=== PATIENT | female | born 1975 | race Caucasian/White ===

== ENCOUNTER → 2016-09-08 | Outpatient (CLI) | payer BC, OTHER ==
[~2016-09-08] MED LIST: AMT/25 PO; ATV/1 PO; AUG0.05C12 TOP; BUSP-8 PO; CHOL100010 PO; CMD6 PO; DILT120C68 PO; EZET10TA63 PO; FAMO20TA9 PO; FERR325T51 PO; FLUT0.0529 NAE; FLUT1INH7 INH; GLC/500 PO; INSUINJ4 SC; IPRA1AER2 INH; IPRASOL4 INH; LEVAAER2 INH; LEVO125T72 PO; LEVO200T6 PO; LIRA18IN SC; LPT40 PO; MONT1TAB3 PO; MULT1CHW37 PO; NVLG SQ; PANT1TAB48 PO; PLMINS INH; PRD/1 PO; PRED-301 PO; RIVA1TAB4 PO; SERT-234 PO; SULF800T23 PO; WARF6TAB5 PO
[2016-09-08 11:39] LABS: ESTIMATED AVERAGE GLUCOSE 94 mg/dl; HA1C FLAG Normal (Normal)
[2016-09-08 13:05] LABS: CHOLESTEROL/HDL RATIO 6.9; THYROID STIMULATING HORMONE 80.1 uIu/ml (0.300-4.500)
== END | disposition home or self-care (01) ==
LOC: C.LAB1850 10:14
PROVIDERS: ATTEND Internal Medicine Endocrinology, Diabetes & Metabolism
DX: E78.5 Hyperlipidemia, unspecified (principal); E03.9 Hypothyroidism, unspecified

== ENCOUNTER → 2016-11-14 | Outpatient (CLI) | payer BC ==
[~2016-11-14] MED LIST changes: -AMT/25 PO; -CMD6 PO; -INSUINJ4 SC
== END | disposition home or self-care (01) ==
LOC: C.PAPS 16:19
PROVIDERS: ATTEND Obstetrics & Gynecology
DX: Z01.419 Encounter for gynecological examination (general) (routine) without abnormal findings (principal)

== ENCOUNTER → 2016-12-05 | Outpatient (CLI) | payer BC, OTHER ==
[2016-12-05 12:42] LABS: BASO % 0.3 %; BASO ABS # 0.02 K/uL (0-0.2); COMPLETE YES; EOS % 2.7 %; HEMATOCRIT 43.8 % (37-47); IG% 0.2 %; LYMPH ABS # 2.85 K/uL (1.2-3.4); MEAN CORPUSCULAR HEMOGLOBIN 31.3 pg (25-34); MEAN PLATELET VOLUME 11.2 fL (7.4-10.4); MONO % 7.7 %; NEUT % 44.1 %; PLATELET COUNT 253 K/uL (130-400); RED BLOOD COUNT 4.76 M/uL (4.2-5.4); WHITE BLOOD COUNT 6.34 K/uL (4.8-10.8)
[2016-12-05 12:58] LABS: PROLACTIN 5.15 ng/mL
[2016-12-05 13:42] LABS: RATIO 5.7 mcg/mg (0-30.0)
[2016-12-08 22:36] LABS: IGA SERUM 122 mg/dL (81-463); TIS TRANS IGA 1 U/mL (<4)
== END | disposition home or self-care (01) ==
LOC: C.LAB1850 09:26
PROVIDERS: ATTEND Obstetrics & Gynecology
DX: E03.9 Hypothyroidism, unspecified (principal); D64.9 Anemia, unspecified; E11.9 Type 2 diabetes mellitus without complications; N91.1 Secondary amenorrhea

== ENCOUNTER → 2017-01-20 | Outpatient (CLI) | payer BC, OTHER ==
[~2017-01-20] MED LIST changes: -LEVO200T6 PO; -PLMINS INH; -PRD/1 PO; -WARF6TAB5 PO
--- NOTE | 2017-01-20 12:35 | DIAGNOSTIC IMAGING REPORT ---
CHEST 2 VIEWS ROUTINE CLINICAL HISTORY: Z95.828 Port catheter in placet complaining of port tenderness COMPARISON STUDY: 05/08/2016 FINDINGS: Central catheter remains in the medial right subclavian vein at the juncture with the superior vena cava. No change in appearance compared to the prior study. Lungs are clear. Diaphragms smooth. IMPRESSION: No acute process. Electronically signed by: Ferny Espino M.D. 01/20/2017 12:34 PM Dictated Date/Time: 01/20/2017 12:32 PM
== END | disposition home or self-care (01) ==
LOC: C.RAD1850 12:07
PROVIDERS: ATTEND Physician Assistant
DX: Z95.828 Presence of other vascular implants and grafts (principal)

== ENCOUNTER → 2017-01-31 | Outpatient (CLI) | payer BC, OTHER | END | disposition home or self-care (01) | LOC: C.RC 09:05 | PROVIDERS: ATTEND Internal Medicine | DX: J45.909 Unspecified asthma, uncomplicated (principal) ==

== ENCOUNTER → 2017-05-02 | Outpatient (CLI) | payer BC, OTHER ==
[2017-05-02 10:01] LABS: ESTIMATED AVERAGE GLUCOSE 88 mg/dl; HA1C FLAG Normal (Normal)
[2017-05-02 10:22] LABS: CHOLESTEROL/HDL RATIO 9.2
== END | disposition home or self-care (01) ==
LOC: C.LAB1850 08:04
PROVIDERS: ATTEND Internal Medicine Endocrinology, Diabetes & Metabolism
DX: E03.9 Hypothyroidism, unspecified (principal); E11.9 Type 2 diabetes mellitus without complications

== ENCOUNTER → 2017-06-05 | Outpatient (CLI) | payer BC, OTHER ==
[2017-06-05 10:16] LABS: BLOOD UREA NITROGEN 13 mg/dl (7-18); CREATININE 0.61 mg/dl (0.60-1.20); GLUCOSE 89 mg/dl (70-99)
[2017-06-05 10:17] LABS: BUN/CREATININE RATIO 20.6 (10-20); CALCIUM 9.4 mg/dl (8.5-10.1); CARBON DIOXIDE 21 mmol/L (21-32); CHLORIDE 112 mmol/L (98-107); SODIUM 142 mmol/L (136-145)
[2017-06-05 10:27] LABS: THYROID STIMULATING HORMONE 0.099 uIu/ml (0.300-4.500)
== END | disposition home or self-care (01) ==
LOC: C.LAB1850 08:29
PROVIDERS: ATTEND Physician Assistant
DX: E03.9 Hypothyroidism, unspecified (principal)

== ENCOUNTER → 2017-07-31 | Outpatient (CLI) | payer BC, OTHER ==
[2017-07-31 12:47] LABS: THYROID STIMULATING HORMONE 0.088 uIu/ml (0.300-4.500)
== END | disposition home or self-care (01) ==
LOC: C.LAB1850 10:46
PROVIDERS: ATTEND Physician Assistant
DX: E03.9 Hypothyroidism, unspecified (principal)

== ENCOUNTER → 2017-08-04 | Outpatient (CLI) | payer BC, OTHER ==
[~2017-08-04] MED LIST changes: +PANT1TAB3 PO; -PANT1TAB48 PO
--- NOTE | 2017-08-07 07:49 | MAMMOGRAPHY REPORT ---
BILATERAL DIGITAL SCREENING MAMMOGRAM TOMOSYNTHESIS WITH CAD: 08/04/2017 TECHNIQUE: Breast tomosynthesis in addition to standard 2D mammography was performed. Current study was also evaluated with a Computer Aided Detection (CAD) system. COMPARISON: Comparison is made to exam dated: 01/21/2016 mammogram - [facility]. BREAST COMPOSITION: There are scattered areas of fibroglandular density in both breasts. FINDINGS: No suspicious masses, calcifications, or areas of architectural distortion are noted in ei ther breast. There has been no significant interval change compared to prior exams. Scattered bilater al benign-appearing calcifications are not significantly changed. A port catheter again overlies the right upper inner posterior breast. IMPRESSION: ACR BI-RADS CATEGORY 2: BENIGN There is no mammographic evidence of malignancy. A 1 year screening mammogram is recommended. The pa tient will receive written notification of the results. Approximately 10% of breast cancers are not detected with mammography. A negative mammographic report should not delay biopsy if a clinically suggestive mass is present. Odalis Blandon M.D. ah/:08/04/2017 14:37:25 Research Assistant Member: Sara SOLO)(Susan), [facility] letter sent: Normal 1/2 BI-RADS Code: ACR BI-RADS Category 2: Benign
== END | disposition home or self-care (01) ==
LOC: C.MAMM 13:37
PROVIDERS: ATTEND Obstetrics & Gynecology
DX: Z12.31 Encounter for screening mammogram for malignant neoplasm of breast (principal)

== ENCOUNTER → 2017-11-22 | Outpatient (CLI) | payer BC, OTHER ==
[2017-11-22 09:32] LABS: BASO % 0.3 %; BASO ABS # 0.02 K/uL (0-0.2); EOS % 2.9 %; EOS ABS # 0.17 K/uL (0-0.5); HEMATOCRIT 40.4 % (37-47); HEMOGLOBIN 14.1 g/dL (12.0-16.0); IG# 0.01 K/uL (0.00-0.02); LYMPH % 38.2 %; LYMPH ABS # 2.22 K/uL (1.2-3.4); MEAN CELL VOLUME 87.3 fL (80-100); MEAN CORPUSCULAR HEMOGLOBIN 30.5 pg (25-34); MEAN CORPUSCULAR HGB CONC 34.9 g/dl (32-36); MEAN PLATELET VOLUME 10.4 fL (7.4-10.4); MONO % 8.4 %; MONO ABS # 0.49 K/uL (0.11-0.59); PLATELET COUNT 213 K/uL (130-400); RED CELL DISTRIBUTION WIDTH CV 12.8 % (11.5-14.5); WHITE BLOOD COUNT 5.81 K/uL (4.8-10.8)
[2017-11-22 10:10] LABS: ALBUMIN 3.6 gm/dl (3.4-5.0); ALT/SGPT 25 U/L (12-78); AST/SGOT 16 U/L (15-37); BLOOD UREA NITROGEN 17 mg/dl (7-18); CALCIUM 9.5 mg/dl (8.5-10.1); CARBON DIOXIDE 25 mmol/L (21-32); CREATININE 0.73 mg/dl (0.60-1.20); GLUCOSE 80 mg/dl (70-99); POTASSIUM 4.2 mmol/L (3.5-5.1); SODIUM 139 mmol/L (136-145)
[2017-11-22 10:19] LABS: ALKALINE PHOSPHATASE 102 U/L (45-117); CHOLESTEROL 300 mg/dl (0-200); LDL CHOLESTEROL CALCULATED 194 mg/dl; TOTAL PROTEIN 7.5 gm/dl (6.4-8.2)
[2017-11-22 10:22] LABS: HEMOGLOBIN A1C 4.8 % (4.5-5.6)
== END | disposition home or self-care (01) ==
LOC: C.LAB1850 08:32
PROVIDERS: ATTEND Physician Assistant
DX: D50.9 Iron deficiency anemia, unspecified (principal); E11.9 Type 2 diabetes mellitus without complications

== ENCOUNTER → 2017-11-22 | Outpatient (CLI) | payer BC, OTHER | END | disposition home or self-care (01) | LOC: C.PAPS 11:39 | PROVIDERS: ATTEND Obstetrics & Gynecology | DX: Z01.419 Encounter for gynecological examination (general) (routine) without abnormal findings (principal) ==